=== PATIENT | female | born 1995 | race American Indian/Alaskan Native ===

== ENCOUNTER 2019-04-19 22:24 | Emergency (ER) | payer SELFPAY ==
[2019-04-19 22:34] VITALS: BP 124/72
[2019-04-19] MEDS ORDERED: HYDROcodone/ACETAMINOPHEN 5-325 MG TAB PO ONE (23:02)
--- NOTE | 2019-04-19 23:41 | XRay Report ---
LEFT ANKLE, 3 VIEWS INDICATION / CLINICAL INFORMATION: trauma pallet radha over foot. COMPARISON: None available. FINDINGS: No fracture or dislocation. There is a linear metallic foreign object identified in the soft tissues of the foot. It is located o n the lateral aspect of the midfoot, just posterior to the base of the fifth metatarsal. The overall appearance is suggestive of a needle. IMPRESSION: 1. No fracture or malalignment. 2. Linear metallic foreign object in the soft tissues of the lateral midfoot, as described above. The foreign object has an appearance very suggestive of a needle. Signer Name: Leyda Corley MD Signed: 04/19/2019 11:37 PM Workstation Name: [id number] [id number]
--- NOTE | 2019-04-19 23:45 | Emergency Department Report ---
ED Lower Extremity HPI - General Chief Complaint: Extremity Injury, Lower Stated Complaint: LEFT ANKLE PAIN Time Seen by Provider: 04/19/19 23:01 Source: patient Mode of arrival: Ambulatory Limitations: No Limitations - History of Present Illness Initial Comments: Pt is a 24 y/o aaf who presents for left ankle pain s/p pallet radha versus foot. Pain is 5/10 aching , swelling, pt is not MD Complaint: ankle injury Onset/Timin -: days(s) Injury: Ankle: Left (left lateral ankle ) Type of Injury: blunt Place: work Severity: moderate Severity scale (0 -10): 7 Improves With: nothing Worsens With: weight bearing, movement, palpation Context: direct blow Associated Symptoms: snap/pop sensation, swelling, tingling, unable to bear weight - Related Data Previous Rx's Medication Instructions Recorded Last Taken Type Cyclobenzaprine [Flexeril] 10 mg PO TID PRN #30 tablet 04/20/19 Unknown Rx Naproxen 500 mg PO BID PRN #30 tablet 04/20/19 Unknown Rx Allergies Allergy/AdvReac Type Severity Reaction Status Date / Time No Known Allergies Allergy Unverified 04/19/19 23:23 ED Review of Systems ROS: Stated complaint: LEFT ANKLE PAIN Other details as noted in HPI Constitutional: denies: chills, fever Eyes: denies: eye pain, eye discharge, vision change ENT: denies: ear pain, throat pain Respiratory: denies: cough, shortness of breath, wheezing Cardiovascular: denies: chest pain, palpitations Endocrine: no symptoms reported Gastrointestinal: denies: abdominal pain, nausea, diarrhea Genitourinary: denies: urgency, dysuria, discharge Musculoskeletal: other (left lateral ankle pain ). denies: back pain, joint swelling, arthralgia Skin: denies: rash, lesions Neurological: denies: headache, weakness, paresthesias Psychiatric: denies: anxiety, depression Hematological/Lymphatic: denies: easy bleeding, easy bruising ED Past Medical Hx - Past Medical History Previous Medical History?: No - Surgical History Past Surgical History?: Yes Additional Surgical History: C-Sec - Social History Smoking Status: Never Smoker Substance Use Type: None - Medications Home Medications: Home Medications Medication Instructions Recorded Confirmed Last Taken Type Cyclobenzaprine [Flexeril] 10 mg PO TID PRN #30 tablet 04/20/19 Unknown Rx Naproxen 500 mg PO BID PRN #30 tablet 04/20/19 Unknown Rx ED Physical Exam - General Limitations: No Limitations General appearance: alert, in no apparent distress - Head Head exam: Present: atraumatic, normocephalic - Eye Eye exam: Present: normal appearance - ENT ENT exam: Present: mucous membranes moist - Neck Neck exam: Present: normal inspection, full ROM. Absent: tenderness - Respiratory Respiratory exam: Present: normal lung sounds bilaterally. Absent: respiratory distress - Cardiovascular Cardiovascular Exam: Present: regular rate, normal rhythm. Absent: systolic murmur, diastolic murmur, rubs, gallop - GI/Abdominal GI/Abdominal exam: Present: soft, normal bowel sounds. Absent: bruit, hernia - Rectal Rectal exam: Present: deferred - Extremities Exam Extremities exam: Present: normal inspection, tenderness, normal capillary refill, joint swelling (left lateral ankle ) - Expanded Lower Extremity Exam Left Ankle exam: Present: tenderness, swelling, ecchymosis. Absent: abrasion, laceration, deformity, crepidus, dislocation, erythema, anterior draw sign Foot/Toe exam: Present: full ROM, tenderness, swelling. Absent: abrasion, laceration, ecchymosis, deformity, crepidus, dislocation, erythema, amputation, puncture wound, foreign body, calcaneal tenderness, tenderness at base of 5th metatarsal, nail avulsion Neuro vascular tendon exam: Absent: pulse deficit, motor deficit, sensory deficit, tendon deficit, foot drop Gait: Positive: unable to bear weight - Back Exam Back exam: Present: normal inspection, full ROM. Absent: tenderness, vertebral tenderness, rash noted - Neurological Exam Neurological exam: Present: alert, oriented X3, CN II-XII intact, abnormal gait (non weight bearing left ankle ), reflexes normal. Absent: motor sensory deficit - Expanded Neurological Exam Expanded Patient oriented to: Present: person, place, time Motor strength exam: RLE: 5, LLE: 5 DTR: ankle (R): 2+, ankle (L): 2+ Best Eye Response ([place]): (4) open spontaneously Best Motor Response ([place]): (6) obeys commands Best Verbal Response ([place]): (5) oriented Len Total: 15 - Psychiatric Psychiatric exam: Present: normal affect, normal mood - Skin Skin exam: Present: warm, dry, intact, normal color. Absent: rash ED Course Vital Signs 04/19/19 04/19/19 22:29 23:24 Temperature 98.3 F Pulse Rate 89 Respiratory 18 20 Rate Blood Pressure 124/72 O2 Sat by Pulse 100 Oximetry ED Lower Extremity MDM - Radiology Data Radiology results: report reviewed, image reviewed Ordering Physician: TALYA MERCEDES NP Date of Service: 04/19/19 Procedure(s): XR ankle 3+V LT Accession Number(s): [id number] cc: TALYA MERCEDES NP Fluoro Time In Minutes: LEFT ANKLE, 3 VIEWS INDICATION / CLINICAL INFORMATION: trauma pallet radha over foot. COMPARISON: None available. FINDINGS: No fracture or dislocation. There is a linear metallic foreign object identified in the soft tissues of the foot. It is located on the lateral aspect of the midfoot, just posterior to the base of the fifth metatarsal. The overall appearance is suggestive of a needle. IMPRESSION: 1. No fracture or malalignment. 2. Linear metallic foreign object in the soft tissues of the lateral midfoot, as described above. The foreign object has an appearance very suggestive of a needle. Signer Name: Leyda Corley MD Signed: 04/19/2019 11:37 PM Workstation Name: [id number] Transcribed By: JR Dictated By: Leyda Corley MD Electronically Authenticated By: Leyda Corley MD Signed Date/Time: 04/19/192336 DD/ 34 TD/TT: - Medical Decision Making xray neg for fracture, noted chronic foreign body left foot, plan: ankle stirrup , crutches, rice therapy follow up with pcp in 2-3 days pt verbalized agreement and understanding of same. Critical care attestation.: If time is entered above; I have spent that time in minutes in the direct care of this critically ill patient, excluding procedure time. ED Disposition Clinical Impression: Foreign body in foot, left Qualifiers: Encounter type: initial encounter Qualified Code(s): S90.852A - Superficial foreign body, left foot, initial encounter Ankle sprain Qualifiers: Encounter type: initial encounter Involved ligament of ankle: unspecified ligament Laterality: left Qualified Code(s): S93.402A - Sprain of unspecified ligament of left ankle, initial encounter Disposition: - TO HOME OR SELFCARE Is pt being admited?: No Does the pt Need Aspirin: No Condition: Stable Instructions: Ankle Stirrup Splint (ED), Ankle Sprain (ED), Ankle Exercises (GEN), Soft Tissue Foreign Body (ED) Prescriptions: Cyclobenzaprine [Flexeril] 10 mg PO TID PRN #30 tablet PRN Reason: Muscle Spasm Naproxen 500 mg PO BID PRN #30 tablet PRN Reason: pain Referrals: SOMMER LAGOS MD [Staff Physician] - 3-5 Days Forms: Work/School Release Form(ED) Time of Disposition: 00:52
== END 2019-04-20 01:30 | disposition home or self-care (01) ==
LOC: ED 22:24
DX: S93.402A Sprain of unspecified ligament of left ankle, initial encounter (principal); Z79.899 Other long term (current) drug therapy; W22.8XXA Striking against or struck by other objects, initial encounter; Y93.89 Activity, other specified; Y92.69 Other specified industrial and construction area as the place of occurrence of the external cause; Y99.8 Other external cause status

== ENCOUNTER 2019-09-15 19:02 | Emergency (ER) | payer SELFPAY ==
[2019-09-15 19:47] VITALS: BP 126/77
--- NOTE | 2019-09-15 20:23 | Emergency Department Report ---
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 provider. States that she followed up to get a second opinion about 3 days ago at the [place] [facility] who referred her to a contract administration specialist. She presents today with her stating that she was at work when her foot began to swell again causing pain in the meloxicam is not helping and seeks further evaluation and treatment options she reports no reinjury.. She reports no loss of control, no numbness or tingling, no fevers chills or sweats. MD Complaint: ankle injury -: Gradual Injury: Ankle: Left Place: home Severity: mild Improves With: nothing Worsens With: nothing Associated Symptoms: ambulatory - Related Data Previous Rx's Medication Instructions Recorded Last Taken Type Cyclobenzaprine [Flexeril] 10 mg PO TID PRN #30 tablet 04/20/19 Unknown Rx Naproxen 500 mg PO BID PRN #30 tablet 04/20/19 Unknown Rx Ketorolac [Toradol] 10 mg PO Q8HR PRN #10 tablet 09/15/19 Unknown Rx Allergies Allergy/AdvReac Type Severity Reaction Status Date / Time No Known Allergies Allergy Unverified 04/19/19 23:23 ED Review of Systems ROS: Stated complaint: ANKLE PAIN Other details as noted in HPI Comment: All other systems reviewed and negative ED Past Medical Hx - Past Medical History Previous Medical History?: Yes Additional medical history: Injured left ankle at work 2018 - Surgical History Past Surgical History?: No Additional Surgical History: C-Sec - Social History Smoking Status: Never Smoker - Medications Home Medications: Home Medications Medication Instructions Recorded Confirmed Last Taken Type Cyclobenzaprine [Flexeril] 10 mg PO TID PRN #30 tablet 04/20/19 Unknown Rx Naproxen 500 mg PO BID PRN #30 tablet 04/20/19 Unknown Rx Ketorolac [Toradol] 10 mg PO Q8HR PRN #10 tablet 09/15/19 Unknown Rx ED Physical Exam - General Limitations: No Limitations General appearance: alert, in no apparent distress - Head Head exam: Present: atraumatic, normocephalic - Eye Eye exam: Present: normal appearance - Neck Neck exam: Present: normal inspection - Respiratory Respiratory exam: Present: normal lung sounds bilaterally. Absent: respiratory distress - Cardiovascular Cardiovascular Exam: Present: regular rate, normal rhythm. Absent: systolic murmur, diastolic murmur, rubs, gallop - GI/Abdominal GI/Abdominal exam: Present: soft, normal bowel sounds - Extremities Exam Extremities exam: Present: normal inspection, tenderness (To the left ankle joint. No swelling. No ecchymosis no bruising. Pulses 2+ capillary refills are brisk. Normal drawer test. No tenderness at the base of the fifth metatarsal.) - Back Exam Back exam: Present: normal inspection - Neurological Exam Neurological exam: Present: alert, oriented X3 - Psychiatric Psychiatric exam: Present: normal affect, normal mood - Skin Skin exam: Present: warm, dry, intact, normal color. Absent: rash ED Course Vital Signs 09/15/19 19:37 Temperature 98.8 F Pulse Rate 99 H Respiratory 18 Rate Blood Pressure 126/77 O2 Sat by Pulse 98 Oximetry Critical care attestation.: If time is entered above; I have spent that time in minutes in the direct care of this critically ill patient, excluding procedure time. ED Disposition Clinical Impression: Chronic ankle pain Disposition: DC-01 TO HOME OR SELFCARE Is pt being admited?: No Does the pt Need Aspirin: No Condition: Stable Instructions: Arthralgia (ED) Prescriptions: Ketorolac [Toradol] 10 mg PO Q8HR PRN #10 tablet PRN Reason: Pain Referrals: PRIMARY CAREMD [Primary Care Provider] - 3-5 Days CHELY RUIZ DPM [Staff Physician] - 3-5 Days KADEN CAIN MD [Staff Physician] - 3-5 Days BRAD JONES DPM [Referring] - 3-5 Days
== END 2019-09-15 20:41 | disposition home or self-care (01) ==
LOC: ED 19:02
DX: M25.571 Pain in right ankle and joints of right foot (principal); R22.41 Localized swelling, mass and lump, right lower limb; G89.29 Other chronic pain
CPT/HCPCS: 99282